=== PATIENT | male | born 1965 | race American Indian/Alaskan Native ===

== ENCOUNTER 2016-10-04 07:58 | Emergency (ER) | payer BC ==
--- NOTE | 2016-10-04 09:34 | Emergency Department Report ---
ED Lower Extremity HPI - General Chief Complaint: Extremity Injury, Lower Stated Complaint: POSS GOUT/FOOT PAIN Time Seen by Provider: 10/04/16 08:33 Source: patient Mode of arrival: Ambulatory Limitations: No Limitations - Related Data Home Medications Medication Instructions Recorded Confirmed Last Taken Metformin HCl [Glucophage] 850 mg PO BID 10/04/16 10/04/16 Unknown Allergies Allergy/AdvReac Type Severity Reaction Status Date / Time shellfish derived Allergy Unknown Verified 10/04/16 08:06 ED Review of Systems ROS: Stated complaint: POSS GOUT/FOOT PAIN Other details as noted in HPI ED Past Medical Hx - Past Medical History Previous Medical History?: Yes Hx Diabetes: Yes ([id number] type 2) Hx Asthma: Yes Additional medical history: Gout - Surgical History Past Surgical History?: Yes Additional Surgical History: right foot surgery-skin graft - Social History Smoking Status: Never Smoker Substance Use Type: Alcohol, Prescribed - Medications Home Medications: Home Medications Medication Instructions Recorded Confirmed Last Taken Type Metformin HCl [Glucophage] 850 mg PO BID 10/04/16 10/04/16 Unknown History ED Physical Exam - General Limitations: No Limitations ED Course Vital Signs 10/04/16 08:02 Temperature 98.8 F Pulse Rate 110 H Respiratory 20 Rate Blood Pressure 151/107 O2 Sat by Pulse 96 Oximetry Critical care attestation.: If time is entered above; I have spent that time in minutes in the direct care of this critically ill patient, excluding procedure time. ED Disposition Condition: Stable Referrals: PRIMARY CARE, [Primary Care Provider] - 3-5 Days
--- NOTE | 2016-10-04 10:45 | XRay Report ---
Bilateral feet: History: Foot pain. Findings: There is s spur identified in the posterior superior aspect of right and left calcaneum. There is arthritic change is noted at the dorsal aspect of the intertarsal joints. The tarsometatarsal joints and the metatarsophalangeal joints and interphalangeal joints grossly appears unremarkable. No periosteal reaction or soft tissue calcification. Impression Findings as detailed above.
[2016-10-04 10:49] LABS: Basophils % (Auto) 0.9 % (0.0-1.8); Hematocrit 44.7 % (35.5-45.6); Hemoglobin 15.1 gm/dl (11.8-15.2); Mean Corpuscular HGB Conc 34 % (32-34); Mean Corpuscular Hemoglobin 29 pg (28-32); Mean Corpuscular Volume 87 fl (84-94); Platelet Count 307 K/mm3 (140-440); Red Blood Count 5.15 M/mm3 (3.65-5.03); Red Cell Distribution Width 13.5 % (13.2-15.2); White Blood Count 10.1 K/mm3 (4.5-11.0)
[2016-10-04 10:52] LABS: Anion Gap 19 mmol/L; Blood Urea Nitrogen 14 mg/dL (9-20); Carbon Dioxide 27 mmol/L (22-30); Chloride 93.5 mmol/L (98-107); Glucose 259 mg/dL (75-100); Potassium 4.3 mmol/L (3.6-5.0); Sodium 135 mmol/L (137-145)
[2016-10-04] MEDS ORDERED: MOTRIN PO ONE (11:45)
[2016-10-04 11:50] VITALS: BP 136/85
== END 2016-10-04 11:48 | disposition home or self-care (01) ==
LOC: ED 07:58
DX: M79.673 Pain in unspecified foot (principal); E11.9 Type 2 diabetes mellitus without complications; J45.909 Unspecified asthma, uncomplicated; Z91.013 Allergy to seafood
CPT/HCPCS: 36415; 80048; 82962; 85025

== ENCOUNTER 2017-02-22 19:22 | Inpatient (IN) | payer BC, OTHER ==
[2017-02-22 20:21] LABS: Basophils % (Auto) 0.7 % (0.0-1.8); Eosinophils % (Auto) 1.7 % (0.0-4.3); Hematocrit 45.6 % (35.5-45.6); Mean Corpuscular HGB Conc 33 % (32-34); Mean Corpuscular Hemoglobin 29 pg (28-32); Mean Corpuscular Volume 89 fl (84-94); Platelet Count 252 K/mm3 (140-440); Red Blood Count 5.12 M/mm3 (3.65-5.03); Red Cell Distribution Width 13.5 % (13.2-15.2); White Blood Count 8.2 K/mm3 (4.5-11.0)
[2017-02-22 20:22] LABS: BUN/Creatinine Ratio 15.38; Blood Urea Nitrogen 20 mg/dL (9-20); Calcium 8.7 mg/dL (8.4-10.2); Carbon Dioxide 20 mmol/L (22-30); Chloride 100.1 mmol/L (98-107); Glucose 193 mg/dL (75-100); Sodium 138 mmol/L (137-145)
[2017-02-22 20:29] LABS: Anion Gap 23 mmol/L
[2017-02-22 20:30] LABS: Potassium 4.6 mmol/L (3.6-5.0)
[2017-02-22] MEDS ORDERED: NITRO-BID 2% TP ONE (22:05)
[2017-02-22] MEDS ORDERED: ASPIRIN PO ONE (22:05)
[2017-02-22] MEDS ORDERED: MORPHINE IV ONE (22:05)
[2017-02-22] MEDS ORDERED: ZOFRAN IV ONE (22:05)
--- NOTE | 2017-02-22 22:11 | Emergency Department Report ---
HPI - General Chief Complaint: Chest Pain Time Seen by Provider: 02/22/17 21:49 - HPI HPI: Room 7 The patient is a 51-year-old male presenting with chief complaint chest pain. The patient states for multiple months his had intermittent left-sided chest pain that has never sought medical attention. Patient states today at 13:00 while at rest he again developed left-sided chest pressure radiating to his left neck and left upper extremity. Patient denies shortness of breath, nausea/ vomiting or diaphoresis. The patient currently gives his pain a score of 6/10. The patient states his last stress test occurred over 5 years ago and he has never had a cardiac catheterization Location: [see above] Duration: [see above] Quality: Pressure Severity: 6/10 Modifying factors: [see above] Context: [see above] Mode of transportation: unknown ED Past Medical Hx - Past Medical History Hx Hypertension: Yes Hx Diabetes: Yes (wsn-[id number]-[id number] type 2) Hx Asthma: Yes Additional medical history: Gout - Surgical History Additional Surgical History: right foot surgery-skin graft - Family History Family history: no significant - Social History Smoking Status: Never Smoker Substance Use Type: Alcohol (occasional) - Medications Home Medications: Home Medications Medication Instructions Recorded Confirmed Last Taken Type Gabapentin [Neurontin] 100 mg PO Q8HR #60 capsule 10/04/16 Unknown Rx Metformin HCl [Glucophage] 850 mg PO BID #60 tablet 10/04/16 Unknown Rx Sulfamethoxazole/Trimethoprim 1 each PO BID #14 tablet 10/04/16 Unknown Rx [Bactrim DS TAB] amLODIPine [Norvasc] 5 mg PO DAILY #30 tab 10/04/16 Unknown Rx ED Review of Systems ROS: Stated complaint: CHEST PAIN Other details as noted in HPI Comment: All other systems reviewed and negative Constitutional: denies: chills, fever Eyes: denies: eye pain, eye discharge, vision change ENT: denies: ear pain, throat pain Respiratory: denies: cough, shortness of breath, wheezing Cardiovascular: chest pain Endocrine: no symptoms reported Gastrointestinal: denies: abdominal pain, nausea, diarrhea Genitourinary: denies: urgency, dysuria Musculoskeletal: denies: back pain, joint swelling, arthralgia Skin: denies: rash, lesions Neurological: denies: headache, weakness, paresthesias Psychiatric: denies: anxiety, depression Hematological/Lymphatic: denies: easy bleeding, easy bruising Physical Exam - Physical Exam Vital Signs: Vital Signs 02/22/17 02/22/17 02/22/17 19:27 19:41 20:47 Temperature 98.2 F 98.2 F Pulse Rate 80 80 70 Respiratory 18 18 12 Rate Blood Pressure 154/109 Blood Pressure 154/109 [Right] O2 Sat by Pulse 97 97 96 Oximetry 02/22/17 02/22/17 02/22/17 20:53 20:56 20:57 Temperature Pulse Rate 72 72 Respiratory 18 16 Rate Blood Pressure Blood Pressure 172/105 [Right] O2 Sat by Pulse 98 Oximetry Physical Exam: GENERAL: The patient is well-developed well-nourished male lying on stretcher not appearing to be in acute distress. [] HEENT: Normocephalic. Atraumatic. Extraocular motions are intact. Patient has moist mucous membranes. NECK: Supple. Trachea midline CHEST/LUNGS: Clear to auscultation. There is no respiratory distress noted. HEART/CARDIOVASCULAR: Regular. There is no tachycardia. There is no gallop rub or murmur. ABDOMEN: Abdomen is soft, nontender. Patient has normal bowel sounds. There is no abdominal distention. SKIN: There is no rash. There is no diaphoresis. NEURO: The patient is awake, alert, and oriented. The patient is cooperative. The patient has normal speech MUSCULOSKELETAL: There is no evidence of acute injury. ED Course Vital Signs 02/22/17 02/22/17 02/22/17 19:27 19:41 20:47 Temperature 98.2 F 98.2 F Pulse Rate 80 80 70 Respiratory 18 18 12 Rate Blood Pressure 154/109 Blood Pressure 154/109 [Right] O2 Sat by Pulse 97 97 96 Oximetry 02/22/17 02/22/17 02/22/17 20:53 20:56 20:57 Temperature Pulse Rate 72 72 Respiratory 18 16 Rate Blood Pressure Blood Pressure 172/105 [Right] O2 Sat by Pulse 98 Oximetry ED Medical Decision Making - Lab Data Result diagrams: 02/22/17 19:50 02/22/17 19:50 Laboratory Tests 02/22/17 02/22/17 19:50 19:50 WBC 8.2 RBC 5.12 H Hgb 15.0 Hct 45.6 MCV 89 MCH 29 MCHC 33 RDW 13.5 Plt Count 252 Lymph % (Auto) 31.7 [place] % (Auto) 6.3 Eos % (Auto) 1.7 Baso % (Auto) 0.7 Lymph # 2.6 Wise # 0.5 Eos # 0.1 Baso # 0.1 Seg Neutrophils % 59.6 Seg Neutrophils # 4.9 Sodium 138 Potassium 4.6 Chloride 100.1 Carbon Dioxide 20 L Anion Gap 23 BUN 20 Creatinine 1.3 Estimated GFR > 60 BUN/Creatinine Ratio 15.38 Glucose 193 H Calcium 8.7 Troponin T < 0.010 - EKG Data -: EKG Interpreted by Me EKG shows normal: sinus rhythm Rate: normal - EKG Data When compared to previous EKG there are: previous EKG unavailable Interpretation: normal EKG - Radiology Data Radiology results: image reviewed (chest x-ray) interpreted by me: Chest x-ray-no focal infiltrates, no pneumothorax - Differential Diagnosis ACS, GERD, pericarditis Critical care attestation.: If time is entered above; I have spent that time in minutes in the direct care of this critically ill patient, excluding procedure time. ED Disposition Clinical Impression: Chest pain Disposition: DC-09 OP ADMIT IP TO THIS HOSP Is pt being admited?: Yes Does the pt Need Aspirin: Yes Condition: Fair Instructions: Chest Pain (ED) Time of Disposition: 22:31 (hospitalist paged)
--- NOTE | 2017-02-22 23:29 | XRay Report ---
FINAL REPORT EXAM: XR CHEST 1V AP HISTORY: chest pain TECHNIQUE: AP portable view of the chest. PRIORS: None. FINDINGS: The cardiomediastinal silhouette appears normal. The lungs are clear. The bones and soft tissues are unremarkable. IMPRESSION: No evidence of acute cardiopulmonary disease.
--- NOTE | 2017-02-22 23:38 | History and Physical Report ---
History of Present Illness Date of examination: 02/22/17 Date of admission: 02/22/17 22:45 Chief complaint: CP History of present illness: Patient is a 51-year-old man history of peripheral neuropathy due to type 2 diabetes mellitus, gout, hypertension and asthma who presents with moderately intense, intermittent, lasting less than 30 minutes, pressure-like nonradiating left-sided chest pains that started around 1 PM yesterday without any aggravating or relieving factors. Chest pains has been present for 1-2 months. Cp helped by nitroglycerin paste. Patient does admit about 4 days ago he had increase amount of tequila with red bull together while playing poker. Past medical history: Type II diabetic mediastinal mellitus, hypertension, gout , arthritis Past surgical history: Right foot skin graft Social history: Nonsmoker, 1 or 2 nights a week tequila with Red bull, full code , at bedside Family history: Mother hypertension ROS: Constitutional: no weight loss, no weight gain, no chills, no sweats, no fatigue , no weakness, no poor appetite Ears, nose, mouth and throat: no deferred, no ear pain, no decreased hearing, no sinus pressure, no bleeding gums, no dental pain, no mouth pain, no hoarseness, no sore throat, no swelling in mouth, no post-nasal drip, no headache, no vertigo, no pain front of neck, no neck lump Cardiovascular: see hpi Respiratory: no cough with sputum, no excessive sputum, no hemoptysis, no pleurisy, no pain, no pain on inspiration, no respiratory infections, no other Gastrointestinal: no nausea, no diarrhea, no constipation, no hematemesis, no hematochezia, no loss of appetite, no early satiety, no indigestion, no dyspepsia/bloating Genitourinary Male: no flank pain, no discharge, no urinary hesitancy, no nocturia Rectal: no incontinence, no bleeding, no itching, no discharge Musculoskeletal: no neck stiffness, no shooting arm pain, no arm numbness/ tingling, no shooting leg pain, no leg numbness/tingling, no atrophy, no limitation of motion, no fractures, no loss of height, no prior amputations, no arthritis Integumentary: no depigmentation, no dryness, no unusual bruising Neurological: no weakness, no tingling, no syncope, no vertigo, no migraines, no aphasia, no change in mentation, no changes in smell/taste, no balance difficulties, no double vision, no burning pain, no paralysis Psychiatric: hypersomnia, change in libido, irritability, no anxiety, no memory loss, no sleep disturbances, no change in appetite, no disorientation, no hallucinations, no paranoia, no hopelessness, no anxiety attacks, no confusion Endocrine: no cold intolerance, no polyphagia, no polydipsia, no polyuria, no nocturia, no proptosis, no palpatations, no high blood sugars, no low blood sugars, no fatigue Hematologic/Lymphatic: no easy bruising, no lymphedema Allergic/Immunologic: no urticaria, no allergic rhinitis, no anaphylaxis Medications and Allergies Allergies Allergy/AdvReac Type Severity Reaction Status Date / Time shellfish derived Allergy Unknown Verified 10/04/16 08:06 Home Medications Medication Instructions Recorded Confirmed Last Taken Type Gabapentin [Neurontin] 100 mg PO Q8HR #60 capsule 10/04/16 Unknown Rx Metformin HCl [Glucophage] 850 mg PO BID #60 tablet 10/04/16 Unknown Rx Sulfamethoxazole/Trimethoprim 1 each PO BID #14 tablet 10/04/16 Unknown Rx [Bactrim DS TAB] amLODIPine [Norvasc] 5 mg PO DAILY #30 tab 10/04/16 Unknown Rx Exam - Physical Exam Narrative exam: GEN: WDWN, NAD, AWAKE, ALERT, ORIENTATED x 3 HEENT: NCAT, PERRL, EOMI, OP CLEAR NECK: SUPPLE, NO THYROMEGALY, NO JVD, NO LAD CVS: RRR, NORMAL S1S2 LUNGS/CHEST: CTA B, NORMAL CHEST EXPANSION B, GOOD AIR ENTRY B ABD: SOFT, NTND, GBS, NO REBOUND OR GUARDING EXT/SKIN: NO SIGNIFICANT EDEMA OR RASH MSK: FROM X 4 EXTREMITIES NEURO: CN 2-12 GROSSLY INTACT, NO FOCAL DEFICITS PSY: CALM - Constitutional Vitals: Temp Pulse Resp BP Pulse Ox 98.2 F 68 10 L 164/103 96 02/22/17 19:41 02/22/17 23:15 02/22/17 23:15 02/22/17 23:15 02/22/17 23:15 Results - Labs CBC & Chem 7: 02/22/17 19:50 02/22/17 19:50 Assessment and Plan Patient is a 51-year-old man history of peripheral neuropathy due to type 2 diabetes mellitus, gout, hypertension and asthma who presents with moderately intense, intermittent, lasting less than 30 minutes, pressure-like nonradiating left-sided chest pains that started around 1 PM yesterday without any aggravating or relieving factors. Chest pains has been present for 1-2 months. Cp helped by nitroglycerin paste. Patient does admit about 4 days ago he had increase amount of tequila with red bull together while playing poker. -Chest pains: get stress test -Uncontrolled DM2 with hyperglycemi: ssi, ada diet after stress guilherme -Accelerated hypertension: home meds -Asthma, chronic and stable: prn albuterol -DVT prophylaxis: sq lovenox
[2017-02-23] MEDS ORDERED: D50W (25GM) Syringe IV PRN (00:48)
[2017-02-23] MEDS ORDERED: PROVENTIL IH PRN (00:49)
[2017-02-23 05:55] VITALS: BP 110/63
[2017-02-23] MEDS ORDERED: NOVOLOG SUB-Q SCH ×2 (06:00→11:30)
[2017-02-23] MEDS ORDERED: NEURONTIN PO SCH (06:00)
--- NOTE | 2017-02-23 06:14 | Admit Criteria Form ---
Admission Criteria Documentation: CARDIOLOGY GRG Clinical Indications for Admission to Inpatient Care ([place]/check or initial the applicable condition/criteria) Hospital admission is needed for appropriate care of the patient because of ANY ONE of the following: [ ] I. Hemodynamic instability as indicated by ALL of the following (1)(2)(3) (4)(5)(6)(7)(8)(9)(10) [ ]a) Vital sign abnormality not readily corrected by appropriate treatment with 12-24 hours for ANY ONE: [ ]i) Hypotension that persists despite appropriate treatment (eg, volume repletion) [ ]ii) Tachycardiathat persists despite appropriate tx ( e.g., analgesia, fluids, sedation as indicated [ ]iii) Orthostatic vital sign changes that persists despite appropriate treatment (eg, volume repletion) [ ]b) Vital sign abnormailty that is severe indicated by ANY ONE of the following: [ ]i) Inadequate perfusion indicated by ANY ONE of the following: [ ] 1) Lactic acidosis (> 2 mmol/L) [ ] 2) New abnormal capillary refill (> 3 seconds) [ ] 3) Reduced urine output [ ] 4) New altered mental status [ ] 5) Myocardial Ischemia [ ] 6) Other metabolic acidosis (arterial pH <7.35 ) not otherwise explained. [ ]ii) Mean arterial pressure[A] less than 60 mm Hg [ ]iii) Mean arterial pressure[A] less than 70 mm Hg after 30 minutes of appropriate treatment (eg, fluid resuscitation) [ ]iv) Sustained heart rate greater than 120 beats per minute in adult or child 6 years or older[B] [ ]v) IV inotropic or vasopressor medication required to maintain adequate blood pressure or perfusion [ ] II. Severe heart failure as indicated by ANY ONE of the following(17)(18) [ ]a) Respiratory distress [ ]b) Hypotension [ ]c) Debilitating anasarca refractory to therapy (eg, tissue breakdown with infection)[C](19) [ ]d) Cardiac arrhythmias of immediate concern [ ]e) Myocardial ischemia [ ] III. Cardiac arrhythmias or findings of immediate concern indicated by ANY ONE of the following (21)(22): [ ] a) Heart rhythms that are inherently dangerous or unstable indicated by ANY ONE of the following (23)(24)(25): [ ] i) Resuscitated ventricular fibrillation or cardiac arrest [ ] ii) Ventricular escape rhythm [ ] iii) Sustained ventricular tachycardia (30 seconds or more of ventricular rhythm at greater than 100 beats per minute) [ ] iv) Nonsustained ventricular tachycardia and ANY ONE of the following: [ ] 1) Suspected cardiac ischemia as cause or consequence of ventricular tachycardia [ ] 2) Acute myocarditis [ ] b) Unstable cardiac conduction defects indicated by ANY ONE of the following(25)(26)(27) [ ] i) Type II second-degree atrioventricular block [ ]ii) Third-degree atrioventricular block [ ]iii) New-onset left bundle branch block with suspected myocardial ischemia [ ]c) Any heart rhythm and ANY ONE of the following (23)(24)(28)(29) (30) [ ] i) Continuous long-term ECG monitoring needed (e.g., initiation of drug requiring monitoring for more than 24 hours) [ ] ii) Patient has automatic implanted cardioverter defibrillator that is repeatedly firing, malfunctioning, or in need of immediate adjustment of settings beyond the scope of ambulatory or observation care [ ]d) Heart rhythms of concern due to ANY ONE of the following: [ ] i) Hypotension [ ] ii) Respiratory distress [ ] iii) Association with other significant symptoms (e.g., bradycardia with syncope or ongoing dizziness, supraventricular tachycardia with chest pain (28)(29)(31) [ ] IV. Monitoring for cardiac contusion beyond the scope of observation care needed [A](32)(33)(34) [ ] V. Surgical or device complication (e.g., valve replacement complication , ICD disfunction or pacemaker dysfunction) (49)(50)(51)(52)(53)(54) [ ] . Inpatient palliative care needed. [F](51)(52) Also use Inpatient Palliative Care Criteria [ ] VII. Nonbacterial thrombotic (marantic) endocarditis(43)(44)(55)(56)(57) [ X] VIII. Cardiology condition, symptom, or finding for which emergency and observation care has failed or are not considered appropriate. [ ] IX. Acute valvular disease requiring inpatient as indicated by ANY ONE of the following (40)(41) [ ]a) Acute valvular regurgitation (42) [ ]b) Noninfectious valvulitis (43)(44) [ ]c) Obstructive valve thrombosis (45)(46) [ ]d) Paravalvular leak(47)(48) [ ]e) Other significant valvular disorder remaining after emergency or observation level of care (as appropriate) [ ]X. Pericardial disease requiring inpatient treatment as indicated by ANY ONE of the following (35)(36)(37)(38) [ ]a) Suspected tamponade [ ]b) Hemopericardium [ ]c) Other significant pericardial disorder remaining after emergency or observation level of care (as appropriate)(39) [ ] XI. Cardiac ischemia beyond scope of emergency and observation care. [ ] XII. Cyanotic heart disease requiring inpatient care as indicated by 1 or more of the following(58)(59)(60): [ ]a) Acute onset of hypoxemia [ ]b) Exacerbation [ ] XIII. Hypertension requiring inpatient treatment as indicated by ANYONE of the following(11)(12)(13)(14): [ ]a) Severe hypertension (SBP greater than 180 mm Hg or DBP greater than 110 mm Hg, or greater than the 95th percentile for age, gender, and height in pediatric patients) that cannot be controlled (eg, to SBP less than 160 mm Hg and DBP less than 100 mm Hg) by emergency department or observation care treatment(15) [ ]b) Acute end organ damage secondary to hypertension (SBP greater than 140 mm Hg or DBP greater than 90 mm Hg) as indicated by ANYONE of the following: [ ] i) Hypertensive encephalopathy (eg, Altered mental status)(16) [ ] ii) Cerebral infarction [ ] iii) Intracranial hemorrhage [ ] iv) Myocardial ischemia or infarction [ ] v) Heart failure (eg, pulmonary edema) [ ] vi) Aortic dissection [ ] vii) Increased creatinine (new) with reduction of more than 50% in estimated glomerular filtration rate from baseline [ ] viii) Papilledema [ ] ix) Retinal hemorrhage [ ] x) Microangiopathic hemolytic anemia [ ] xi) Seizure [ ] xii) Other significant finding secondary to hypertension [ ] XIV. Complications of transplanted heart indicated by ANY ONE of the following(61): [ ]a) Acute graft rejection requiring inpatient management (eg, intravenous imunosuppression)(62)(63) [ ]b) Acute graft heart failure indicated by ANY ONE of the following(64): [ ] i) Hemodynamic instability [ ] ii) Cardiac arrhythmias of immediate concern [ ] iii) Pulmonary edema that is very severe (eg, mechanical ventilation needed, imminent or likely, need for 100% oxygen to keep oxygen saturation above 90%) [ ] iv) Pulmonary edema that is persistent as indicated by ALL of the following: [ ] 1) New need for oxygen therapy to keep oxygen saturation above 90 % (or increased FiO2 need from baseline) [ ] 2) Has not improved sufficiently with emergency department or observation care IV diuretics or other heart failure treatments[E]. [ ] iv) Altered mental status that is severe or persistent [ ] iv) Increased creatinine (new on laboratory test) with reduction of more than 50% in estimated glomerular filtration rate from baseline [ ] iv) Progressively (ongoing) rising creatinine (known from past laboratory test) with reduction of more than 25% in estimated glomerular filtration rate from baseline [ ] iv) Acute renal failure [ ] iv) Acute peripheral ischemia (eg, examination shows pulseless, cool, mottled, or cyanotic extremity) [ ] iv) Pulmonary artery catheter monitoring needed [ ] iv) Other sign or symptom of heart failure requiring inpatient treatment (ie, too severe or not responsive to outpatient and observation care treatment) [ ]c) Infection requiring inpatient management (eg, Hemodynamic instability, need for intravenous antimicrobial treatment)(66)(67)(68)(69)(70) [ ]d) Cardiac allograft vasculopathy requiring inpatient management (eg evidence of cardiacischemia)(71) [ ]e) Other complication of transplanted heart (eg, stroke, severe pulmonary hypertension, severe valvular dysfunction) requiring inpatient management(72) The original [employer] content created by [employer] has been revised. The portions of the content which have been revised are identified through the use of italic text or in bold, and [facility] has neither reviewed nor approved the modified material. All other unmodified content is copyright [employer]. Please see references footnoted in the original [employer] edition 2017 Admission Criteria Met: Yes
--- NOTE | 2017-02-23 08:15 | Progress Note ---
Hospitalist Physical - Constitutional Vitals: Temp Pulse Resp BP Pulse Ox 97.6 F 71 21 110/63 98 02/23/17 05:54 02/23/17 05:54 02/23/17 05:54 02/23/17 05:54 02/23/17 05:54 Results - Labs CBC & Chem 7: 02/22/17 19:50 02/22/17 19:50 Labs: Laboratory Last Values WBC 8.2 K/mm3 (4.5-11.0) 02/22/17 19:50 RBC 5.12 M/mm3 (3.65-5.03) H 02/22/17 19:50 Hgb 15.0 gm/dl (11.8-15.2) 02/22/17 19:50 Hct 45.6 % (35.5-45.6) 02/22/17 19:50 MCV 89 fl (84-94) 02/22/17 19:50 MCH 29 pg (28-32) 02/22/17 19:50 MCHC 33 % (32-34) 02/22/17 19:50 RDW 13.5 % (13.2-15.2) 02/22/17 19:50 Plt Count 252 K/mm3 (140-440) 02/22/17 19:50 Lymph % (Auto) 31.7 % (13.4-35.0) 02/22/17 19:50 [place] % (Auto) 6.3 % (0.0-7.3) 02/22/17 19:50 Eos % (Auto) 1.7 % (0.0-4.3) 02/22/17 19:50 Baso % (Auto) 0.7 % (0.0-1.8) 02/22/17 19:50 Lymph # 2.6 K/mm3 (1.2-5.4) 02/22/17 19:50 [place] # 0.5 K/mm3 (0.0-0.8) 02/22/17 19:50 Eos # 0.1 K/mm3 (0.0-0.4) 02/22/17 19:50 Baso # 0.1 K/mm3 (0.0-0.1) 02/22/17 19:50 Seg Neutrophils % 59.6 % (40.0-70.0) 02/22/17 19:50 Seg Neutrophils # 4.9 K/mm3 (1.8-7.7) 02/22/17 19:50 Sodium 138 mmol/L (137-145) 02/22/17 19:50 Potassium 4.6 mmol/L (3.6-5.0) 02/22/17 19:50 Chloride 100.1 mmol/L (98-107) 02/22/17 19:50 Carbon Dioxide 20 mmol/L (22-30) L 02/22/17 19:50 Anion Gap 23 mmol/L 02/22/17 19:50 BUN 20 mg/dL (9-20) 02/22/17 19:50 Creatinine 1.3 mg/dL (0.8-1.5) 02/22/17 19:50 Estimated GFR > 60 ml/min 02/22/17 19:50 BUN/Creatinine Ratio 15.38 % 02/22/17 19:50 Glucose 193 mg/dL (75-100) H 02/22/17 19:50 POC Glucose 262 (70-105) H 02/23/17 05:25 Calcium 8.7 mg/dL (8.4-10.2) 02/22/17 19:50 Troponin T < 0.010 ng/mL (0.00-0.029) 02/23/17 01:59
[2017-02-23] MEDS ORDERED: NORVASC PO SCH (10:00)
--- NOTE | 2017-02-23 14:36 | Discharge Summary ---
Providers - Providers Date of Admission: 02/22/17 22:45 Date of discharge: 02/23/15 Attending physician: MABEL MORENO MD Primary care physician: MANNY HOLLAND MD Hospitalization Condition: Good Hospital course: Patient is a 51-year-old male with past medical history of peripheral neuropathy due to type 2 diabetes mellitus, gout, hypertension and asthma who presents with moderately intense, intermittent, lasting less than 30 minutes, pressure-like nonradiating left-sided chest pain that started around 1 PM yesterday without any aggravating or relieving factors. Patient was diagnosed with Chest Pain, Diabetes mellitus Type 2, Accelerated Hypertension and Asthma. Patient presented with atypical chest pain, ACS was ruled out, stress test normal MPI, negative cardiac enzymes, ECGs shows normal sinus rythm, CXR was wnl. Patient chest pain probably from musculoskeletal. He was treated with IV fluid, supplemental oxygen, and antihypertensive medications. Patient is clinically improved. Patient advised to follow-up with her primary care provider. Discharge Diagnosed Chest Pain due to Costochondritis Diabetes mellitus Type 2 non insulin dependent Accelerated Hypertension Asthma Disposition: TO HOME OR SELFCARE Time spent for discharge: 32 minutes Core Measure Documentation - Palliative Care Palliative Care/ Comfort Measures: Not Applicable - Core Measures Any of the following diagnoses?: none Exam - Constitutional Vitals: Temp Pulse Resp BP Pulse Ox 97.6 F 79 21 110/63 98 02/23/17 05:54 02/23/17 10:20 02/23/17 05:54 02/23/17 05:54 02/23/17 05:54 General appearance: Present: no acute distress - EENT Eyes: Present: PERRL ENT: hearing intact - Neck Neck: Present: supple, normal ROM - Respiratory Respiratory effort: normal Respiratory: bilateral: CTA - Cardiovascular Heart rate: 79 Rhythm: regular Heart Sounds: Present: S1 & S2 - Extremities Extremities: no ischemia Peripheral Pulses: within normal limits - Abdominal General gastrointestinal: Present: soft, non-tender Male genitourinary: Present: deferred - Rectal Rectal Exam: deferred - Integumentary Integumentary: Present: clear, warm, dry - Musculoskeletal Musculoskeletal: strength equal bilaterally - Psychiatric Psychiatric: appropriate mood/affect - Neurologic Neurologic: CNII-XII intact - Allied Health Allied health notes reviewed: nursing Plan Activity: no restrictions Diet: low fat, low cholesterol, low salt Follow up with: PRIMARY CARE, [Primary Care Provider] - 3-5 Days Prescriptions: amLODIPine [Norvasc] 5 mg PO DAILY #30 tab Gabapentin [Neurontin] 100 mg PO Q8HR #60 capsule Metformin HCl [Glucophage] 850 mg PO BID #60 tablet
--- NOTE | 2017-02-24 01:03 | Treadmill Report ---
NAME OF STUDY: Stress test and myocardial perfusion imaging study. Pre-exercise is sinus rhythm, within normal limits. The patient exercised for 7 minutes 23 seconds on Cesar protocol, reaching target heart rate. He did not have chest pain suggestive of angina pectoris. He was mildly short of breath. He reached his target heart rate. Technetium was injected and images were done. 1. Stress test is negative for ischemia. 2. Fair exercise tolerance. 3. Appropriate blood pressure response. MYOCARDIAL PERFUSION IMAGING STUDY: Resting scan revealed homogeneous radioisotope activity. Post stress test perfusion images revealed homogeneous radioisotope uptake. On gated scan, ejection fraction is noted to be mildly reduced at 42%. IMPRESSION: 1. This test is negative for ischemia. 2. Mild left ventricular systolic dysfunction; however, echocardiogram is a better tool for ejection fraction. JOB# [id number] DELICIA/VALENTÍN
== END 2017-02-23 13:34 | disposition home or self-care (01) | DRG 206 ==
LOC: ED 19:22 → 4A 22:45
PROVIDERS: ADMIT Internal Medicine; ATTEND Internal Medicine
DX: M94.0 Chondrocostal junction syndrome [Tietze] (principal); I10 Essential (primary) hypertension; J45.909 Unspecified asthma, uncomplicated; M10.9 Gout, unspecified; E11.42 Type 2 diabetes mellitus with diabetic polyneuropathy; M19.90 Unspecified osteoarthritis, unspecified site; E11.65 Type 2 diabetes mellitus with hyperglycemia; Z82.49 Family history of ischemic heart disease and other diseases of the circulatory system; Z91.013 Allergy to seafood
CPT/HCPCS: 36415; 71010; 78452; 80048; 82962; 84484; 85025; 93005; 93010; 93017; A9502; J1815; J2270; J2405

== ENCOUNTER 2018-09-30 02:29 | Emergency (ER) | payer BC | END 2018-09-30 02:40 | LOC: ED 02:29 | DX: R07.9 Chest pain, unspecified (principal); Z53.21 Procedure and treatment not carried out due to patient leaving prior to being seen by health care provider ==